=== PATIENT | male | born 1975 | race Caucasian/White ===

== ENCOUNTER → 2020-11-11 | Emergency (ER) | payer OTHER ==
[~2020-11-11] VITALS: Ht 177.8 cm; Wt 72.6 kg
[2020-11-11 22:20] VITALS: BP 147/109
== END ==
LOC: ER 21:00
DX: L03.116 Cellulitis of left lower limb (principal); F17.210 Nicotine dependence, cigarettes, uncomplicated; Z88.6 Allergy status to analgesic agent